=== PATIENT | female | born 1995 | race Caucasian/White ===

== ENCOUNTER 2020-05-13 11:54 | Emergency (ER) | payer OTHER ==
[~2020-05-13] VITALS: Ht 165.1 cm; Wt 97.5 kg
== END 2020-05-13 15:48 | disposition home or self-care (01) ==
LOC: ER 11:54
DX: B34.9 Viral infection, unspecified (principal); Z03.818 Encounter for observation for suspected exposure to other biological agents ruled out

== ENCOUNTER 2020-06-11 12:52 | Emergency (ER) | payer OTHER ==
[~2020-06-11] VITALS: Ht 165.1 cm; Wt 90.7 kg
[2020-06-11] MEDS ORDERED: KETO10TA2 PO (16:19)
[2020-06-11] MEDS ORDERED: NORFLEX100MG PO (16:19)
== END 2020-06-11 20:00 | disposition home or self-care (01) ==
LOC: ER 12:52
DX: M54.5 Low back pain (principal)

== ENCOUNTER 2020-12-19 20:27 | Emergency (ER) | payer OTHER ==
[~2020-12-19] VITALS: Ht 162.6 cm; Wt 86.2 kg
[~2020-12-19 20:27] MED LIST: KETO10TA2 PO; NORFLEX100MG PO
[2020-12-19] MEDS ORDERED: PRILOSEC OTC20 MG (20:54)
[2020-12-19] MEDS ORDERED: SENNA (20:54)
[2020-12-19] MEDS ORDERED: PROBIOTICOS (20:55)
[2020-12-20] MEDS ORDERED: PROTONIX40 MG PO (00:16)
== END 2020-12-20 00:42 | disposition home or self-care (01) ==
LOC: ER 20:27
DX: K29.70 Gastritis, unspecified, without bleeding (principal); R10.12 Left upper quadrant pain

== ENCOUNTER 2022-11-01 22:46 | Emergency (ER) | payer OTHER ==
[~2022-11-01] VITALS: Ht 165.1 cm; Wt 99.8 kg
[~2022-11-01 22:46] MED LIST changes: +PRILOSEC OTC20 MG; +PROBIOTICOS; +PROTONIX40 MG PO; +SENNA
[2022-11-01] MEDS ORDERED: CARAFATE1 GM PO (23:39)
[2022-11-01] MEDS ORDERED: PEPCID AC10 MG (23:39)
== END 2022-11-02 02:32 | disposition home or self-care (01) ==
LOC: ER 22:46
DX: K59.01 Slow transit constipation (principal); R12 Heartburn; R10.9 Unspecified abdominal pain; Z88.1 Allergy status to other antibiotic agents

== ENCOUNTER 2023-01-28 02:41 | Emergency (ER) | payer OTHER ==
[~2023-01-28] VITALS: Ht 165.1 cm; Wt 90.7 kg
[~2023-01-28 02:41] MED LIST changes: +CARAFATE1 GM PO; +PEPCID AC10 MG
[2023-01-28] MEDS ORDERED: MELOXICAM15 MG PO (04:26)
== END 2023-01-28 04:34 ==
LOC: ER 02:41
DX: M94.0 Chondrocostal junction syndrome [Tietze] (principal)

== ENCOUNTER 2024-04-19 00:13 | Emergency (ER) | payer OTHER ==
[~2024-04-19] VITALS: Ht 165.1 cm; Wt 111.1 kg
[~2024-04-19 00:13] MED LIST changes: +MELOXICAM15 MG PO
[2024-04-19 00:53] VITALS: BP 121/82
[2024-04-19] MEDS ORDERED: HYOSCYAMINE SULFATE 0.125 MG TAB.SUBL SL STA (02:13)
[2024-04-19] MEDS ORDERED: FAMOTIDINE/PF 20 MG/2 ML VIAL IV PUSH STA (02:13)
[2024-04-19 02:43] LABS: URINE APPEARANCE Clear; URINE BILIRRUBIN Negative (NEGATIVE); URINE BLOOD Negative; URINE COLOR Yellow; URINE GLUCOSE Negative (NEGATIVE); URINE KETONE Negative (NEGATIVE); URINE LEUKOCYTE Trace; URINE NITRATE Negative; URINE PROTEIN Negative (NEGATIVE)
[2024-04-19 02:44] LABS: HEMATOCRIT 36.8 % (36.0-45.00); HEMOGLOBIN 12.4 g/dL (12.0-15.00); MEAN CELL VOLUME 82.8 fL (80.00-100.00); MEAN CORPUSCULAR HGB CONC 33.8 g/dl (32.0-36.0); PLATELET COUNT 230 K/uL (150-450); RED BLOOD COUNT 4.44 M/uL (4.00-6.00); RED CELL DISTRIBUTION WIDTH 13.2 % (11.5-14.5)
[2024-04-19 02:46] LABS: URINE BACTERIA 193.9 uL (0.0-1933); URINE EPITHELIAL CELLS 7.8 uL (0.0-38.8); URINE RBC 6.1 uL (0.0-20.8); URINE WBC 36.2 uL (0.0-23.2)
[2024-04-19 03:35] LABS: AMYLASE 27 U/L (25-115); LIPASE 30 U/L (13-75)
[2024-04-19 03:51] LABS: HCG QUANTITATIVE < 1 mUI/mL (1-3)
[2024-04-19] MEDS ORDERED: INTESTINEX680 M2 PO (05:31)
[2024-04-19] MEDS ORDERED: LEVSIN/SL0.125 MG SL (05:31)
[2024-04-19 05:36] VITALS: O2SAT 100
== END 2024-04-19 05:37 ==
LOC: ER 00:15
PROVIDERS: General Practice
DX: R10.13 Epigastric pain (principal); K64.8 Other hemorrhoids; Z88.8 Allergy status to other drugs, medicaments and biological substances

== ENCOUNTER 2024-12-13 18:09 | Emergency (ER) | payer OTHER ==
[~2024-12-13] VITALS: Ht 170.2 cm; Wt 113.4 kg
[~2024-12-13 18:09] MED LIST changes: +INTESTINEX680 M2 PO; +LEVSIN/SL0.125 MG SL
[2024-12-13 18:28] VITALS: BP 126/81; O2SAT 98
[2024-12-13 22:17] LABS: BASO % 0.2 % (0.1-1.2); EOS # 0.47 (0.04-0.54); EOS % 3.8 % (0.7-7.0); HEMATOCRIT 38.6 % (34.1-44.9); HEMOGLOBIN 12.9 g/dL (11.2-15.7); LYMPH # 3.14 (1.18-3.74); LYMPH % 25.6 % (19.3-53.1); MEAN CORPUSCULAR HEMOGLOBIN 27.3 pg (25.6-32.2); MONO # 0.74 (0.24-0.82); NEUT # 7.87 (1.56-6.13); NEUT % 64.1 % (34.0-71.1); PLATELET COUNT 263 K/uL (163-369); RED BLOOD COUNT 4.73 M/uL (3.93-5.22); RED CELL DISTRIBUTION WIDTH 12.4 % (11.6-14.4)
[2024-12-13 22:37] LABS: BILIRUBIN TOTAL 0.45 mg/dL (0.3-1.2); CREATININE SERUM 0.76 mg/dL (0.55-1.02); GFR 89.97; GLOBULINA 3.7 G/DL (2.4-3.5); POTASSIUM 4.01 mEq/L (3.5-5.1); TOTAL PROTEIN 7.7 gm/dL (6.4-8.2)
[2024-12-13] MEDS ORDERED: GILTUSS COUGH-118 M1 PO (23:28)
[2024-12-13] MEDS ORDERED: ZITHROMAX TRI-500 MG PO (23:28)
[2024-12-13] MEDS ORDERED: ACETAMINOPHEN500 M1 PO (23:28)
== END 2024-12-13 23:48 | disposition home or self-care (01) ==
LOC: ER 18:40
PROVIDERS: Preventive Medicine Public Health & General Preventive Medicine
DX: J06.9 Acute upper respiratory infection, unspecified (principal); Z88.1 Allergy status to other antibiotic agents

== ENCOUNTER 2025-03-26 13:23 | Emergency (ER) | payer OTHER ==
[~2025-03-26] VITALS: Ht 165.1 cm; Wt 106.6 kg
[~2025-03-26 13:23] MED LIST changes: +ACETAMINOPHEN500 M1 PO; +GILTUSS COUGH-118 M1 PO; +ZITHROMAX TRI-500 MG PO
[2025-03-26 15:20] LABS: BASO % 0.2 % (0.1-1.2); EOS # 0.36 (0.04-0.54); EOS % 3.3 % (0.7-7.0); LYMPH # 2.78 (1.18-3.74); LYMPH % 25.5 % (19.3-53.1); MEAN PLATELET VOLUME 11.30 fl (9.4-12.4); MONO # 0.62 (0.24-0.82); MONO % 5.7 % (4.7-12.5); NEUT # 7.11 (1.56-6.13); NEUT % 65.0 % (34.0-71.1); RED CELL DISTRIBUTION WIDTH 12.2 % (11.6-14.4)
[2025-03-26] MEDS ORDERED: MORPHINE SULFATE 4 MG/ML VIAL IV ONE (15:30)
[2025-03-26] MEDS ORDERED: FAMOtidine 10 MG/ML (4ML VIAL) IV ONE (15:30)
[2025-03-26 15:44] LABS: INR 1.0
[2025-03-26 16:16] LABS: ALT/SGPT 63 U/L (12-78); AST/SGOT 25 U/L (15-37); BILIRUBIN TOTAL 0.58 mg/dL (0.3-1.2); BUN CREA RATIO 14 (7.0-25.0); CREATININE SERUM 0.77 mg/dL (0.55-1.02); GFR 88.63; GLOBULINA 3.3 G/DL (2.4-3.5); GLUCOSE FASTING 116 mg/dL (65-100); HCG QUANTITATIVE < 1 mUI/mL (1-3); OSMOLALITY SERUM 282 MOSM/KG (275-295)
== END 2025-03-26 18:35 | disposition home or self-care (01) ==
LOC: ER 13:23
PROVIDERS: General Practice
DX: N83.201 Unspecified ovarian cyst, right side (principal); N93.9 Abnormal uterine and vaginal bleeding, unspecified; Z88.1 Allergy status to other antibiotic agents